=== PATIENT | female | born 1990 | race Caucasian/White ===

== ENCOUNTER → 2016-07-16 | Outpatient (CLI) | payer BC | END | disposition home or self-care (01) | LOC: C.LAB1850 07:01 | PROVIDERS: ATTEND Obstetrics & Gynecology | DX: Z31.41 Encounter for fertility testing (principal) ==

== ENCOUNTER → 2016-08-19 | Outpatient (CLI) | payer BC ==
[2016-08-19 10:15] LABS: CALCULATED INSULIN SENSITIVITY 0.359; GLUCOSE LOG 1.9345; INSULIN FASTING 7.1 mU/L (3-25); INSULIN LOG 0.8513
[2016-08-19 10:17] LABS: PROLACTIN 9.08 ng/mL; THYROID STIMULATING HORMONE 3.19 uIu/ml (0.300-4.500)
== END | disposition home or self-care (01) ==
LOC: C.LAB1850 07:27
PROVIDERS: ATTEND Obstetrics & Gynecology
DX: Z31.41 Encounter for fertility testing (principal)

== ENCOUNTER → 2016-08-27 | Outpatient (CLI) | payer BC ==
--- NOTE | 2016-08-27 10:14 | DIAGNOSTIC IMAGING REPORT ---
HYSTEROSALPINGOGRAM CLINICAL HISTORY: Infertility COMPARISON STUDY: No previous studies for comparison. FINDINGS: 48 seconds of fluoroscopic time was utilized. 5 fluoroscopic spot images were acquired. A hysterosalpingogram was performed by Dr. Mendez. Both fallopian tubes filled a normal fashion. There is free spillage bilaterally. A filling defect within the uterus is felt to represent an air bubble. IMPRESSION: Both fallopian tubes are patent. Electronically signed by: Grey Man M.D. 08/27/2016 10:12 AM Dictated Date/Time: 08/27/2016 10:11 AM
--- NOTE | 2016-08-28 08:34 | OPERATIVE REPORT ---
DATE OF OPERATION: 08/27/2016 DATE OF PROCEDURE: 08/27/2016. PROCEDURE: Hysterosalpingogram. INDICATION: Female infertility. HISTORY OF PRESENT ILLNESS: The patient is a 26-year-old G0, P0 who had presented for infertility workup for hystersalpingogram. This was done using sterile technique and approximately 10 mL of contrast medium. The patient tolerated the procedure well and was stable after it was finished. I attest to the content of the Intraoperative Record and any orders documented therein. Any exceptio ns are noted below.
== END | disposition home or self-care (01) ==
LOC: C.RAD 09:20
PROVIDERS: ATTEND Obstetrics & Gynecology
DX: Z31.41 Encounter for fertility testing (principal)

== ENCOUNTER → 2016-09-06 | Outpatient (CLI) | payer BC | END | disposition home or self-care (01) | LOC: C.LAB1850 06:50 | PROVIDERS: ATTEND Obstetrics & Gynecology | DX: N91.5 Oligomenorrhea, unspecified (principal) ==

== ENCOUNTER → 2016-10-07 | Outpatient (CLI) | payer BC | END | disposition home or self-care (01) | LOC: C.LAB1850 06:53 | PROVIDERS: ATTEND Obstetrics & Gynecology | DX: E03.9 Hypothyroidism, unspecified (principal); N91.5 Oligomenorrhea, unspecified ==

== ENCOUNTER → 2016-11-08 | Outpatient (CLI) | payer BC ==
[2016-11-08 09:50] LABS: ESTIMATED AVERAGE GLUCOSE 94 mg/dl; HA1C FLAG Normal (Normal)
[2016-11-08 10:06] LABS: ALT/SGPT 32 U/L (12-78); AST/SGOT 19 U/L (15-37); BLOOD UREA NITROGEN 8 mg/dl (7-18); CREATININE 0.81 mg/dl (0.60-1.20); GLUCOSE,FASTING 88 mg/dl (70-99)
[2016-11-08 10:07] LABS: ALKALINE PHOSPHATASE 68 U/L (45-117)
== END | disposition home or self-care (01) ==
LOC: C.LAB 09:07
PROVIDERS: ATTEND Specialist
DX: Z31.41 Encounter for fertility testing (principal); E28.2 Polycystic ovarian syndrome

== ENCOUNTER → 2016-12-04 | Outpatient (CLI) | payer BC | END | disposition home or self-care (01) | LOC: C.LAB 08:10 | PROVIDERS: ATTEND Specialist | DX: O09.00 Supervision of pregnancy with history of infertility, unspecified trimester (principal) ==

== ENCOUNTER → 2016-12-20 | Outpatient (CLI) | payer BC | END | disposition home or self-care (01) | LOC: C.PAPS 11:08 | PROVIDERS: ATTEND Obstetrics & Gynecology | DX: Z01.419 Encounter for gynecological examination (general) (routine) without abnormal findings (principal) ==

== ENCOUNTER → 2017-01-14 | Outpatient (CLI) | payer BC | END | disposition home or self-care (01) | LOC: C.LAB1850 06:58 | PROVIDERS: ATTEND Obstetrics & Gynecology Reproductive Endocrinology | DX: Z31.41 Encounter for fertility testing (principal) ==

== ENCOUNTER → 2017-01-16 | Outpatient (CLI) | payer BC ==
--- NOTE | 2017-01-16 16:33 | DIAGNOSTIC IMAGING REPORT ---
EXAMINATION: PELVIC ULTRASOUND (transabdominal and endovaginal scanning) CLINICAL HISTORY: Infertility COMPARISON STUDY: FINDINGS: The uterus measured 4.0 x 6.2 x 3.3 cm. The endometrial stripe measured 5 mm. The right ovary measured 30 x 18 x 15 mm. There are multiple small follicles. The largest measures 7 x 6 x 6 mm. The second largest measures 6 x 5 x 6 mm the third largest measures 5 x 5 x 5 mm.. The left ovary measured 29 x 16 x 17 mm. There are multiple small follicles. The largest measures 6 x 6 x 7 mm. There is also a 6 x 6 x 5 mm follicle is a 7 x 7 x 5 mm follicle.. There is no ultrasonographic evidence of ovarian torsion. It should be noted that ovarian torsion can be present with normal Doppler ultrasonographic findings. There is minimal free fluid present within the cul-de-sac. IMPRESSION: Normal pelvic ultrasound. Multiple bilateral subcentimeter ovarian follicles are visualized. The largest follicle in each ovary measures 7 mm in maximal diameter. Electronically signed by: Grey Man M.D. 01/16/2017 4:32 PM Dictated Date/Time: 01/16/2017 4:29 PM
== END | disposition home or self-care (01) ==
LOC: C.ULTR 14:34
PROVIDERS: ATTEND Specialist
DX: N97.9 Female infertility, unspecified (principal)

== ENCOUNTER → 2017-02-14 | Outpatient (CLI) | payer BC | END | disposition home or self-care (01) | LOC: C.LAB1850 06:54 | PROVIDERS: ATTEND Specialist | DX: O09.00 Supervision of pregnancy with history of infertility, unspecified trimester (principal); Z3A.00 Weeks of gestation of pregnancy not specified ==

== ENCOUNTER → 2017-02-17 | Outpatient (CLI) | payer BC | END | disposition home or self-care (01) | LOC: C.LAB1850 07:30 | PROVIDERS: ATTEND Specialist | DX: Z32.00 Encounter for pregnancy test, result unknown (principal) ==

== ENCOUNTER → 2017-02-19 | Outpatient (CLI) | payer BC | END | disposition home or self-care (01) | LOC: C.LAB1850 07:28 | PROVIDERS: ATTEND Specialist | DX: Z32.00 Encounter for pregnancy test, result unknown (principal) ==

== ENCOUNTER → 2017-03-11 | Outpatient (CLI) | payer BC | END | disposition home or self-care (01) | LOC: C.LAB1850 08:40 | PROVIDERS: ATTEND Specialist | DX: O09.00 Supervision of pregnancy with history of infertility, unspecified trimester (principal); O99.280 Endocrine, nutritional and metabolic diseases complicating pregnancy, unspecified trimester; E03.9 Hypothyroidism, unspecified; E55.9 Vitamin D deficiency, unspecified ==

== ENCOUNTER → 2017-04-25 | Outpatient (CLI) | payer BC | END | disposition home or self-care (01) | LOC: C.LAB1850 07:34 | PROVIDERS: ATTEND Specialist | DX: O09.00 Supervision of pregnancy with history of infertility, unspecified trimester (principal); Z3A.00 Weeks of gestation of pregnancy not specified ==

== ENCOUNTER → 2017-05-23 | Outpatient (CLI) | payer BC | END | disposition home or self-care (01) | LOC: C.LAB1850 07:24 | PROVIDERS: ATTEND Specialist | DX: O09.00 Supervision of pregnancy with history of infertility, unspecified trimester (principal); Z3A.00 Weeks of gestation of pregnancy not specified ==

== ENCOUNTER → 2017-07-21 | Outpatient (CLI) | payer BC | END | disposition home or self-care (01) | LOC: C.LAB1850 07:45 | PROVIDERS: ATTEND Specialist | DX: Z32.00 Encounter for pregnancy test, result unknown (principal) ==

== ENCOUNTER → 2017-07-23 | Outpatient (CLI) | payer BC | END | disposition home or self-care (01) | LOC: C.LAB1850 07:53 | PROVIDERS: ATTEND Specialist | DX: Z32.00 Encounter for pregnancy test, result unknown (principal) ==

== ENCOUNTER → 2017-07-25 | Outpatient (CLI) | payer BC | END | disposition home or self-care (01) | LOC: C.LAB1850 08:08 | PROVIDERS: ATTEND Specialist | DX: Z32.00 Encounter for pregnancy test, result unknown (principal) ==

== ENCOUNTER → 2017-07-28 | Outpatient (CLI) | payer BC | END | disposition home or self-care (01) | LOC: C.LAB1850 09:44 | PROVIDERS: ATTEND Specialist | DX: Z32.00 Encounter for pregnancy test, result unknown (principal) ==

== ENCOUNTER → 2017-08-25 | Outpatient (CLI) | payer BC | END | disposition home or self-care (01) | LOC: C.LABSPEC 15:49 | PROVIDERS: ATTEND Obstetrics & Gynecology | DX: O09.291 Supervision of pregnancy with other poor reproductive or obstetric history, first trimester (principal); Z3A.00 Weeks of gestation of pregnancy not specified ==

== ENCOUNTER → 2017-08-29 | Outpatient (CLI) | payer BC ==
[2017-08-29 15:13] LABS: BASO % 0.5 %; BASO ABS # 0.04 K/uL (0-0.2); EOS % 4.3 %; EOS ABS # 0.35 K/uL (0-0.5); HEMATOCRIT 35.9 % (37-47); HEMOGLOBIN 13.1 g/dL (12.0-16.0); IG# 0.02 K/uL (0.00-0.02); LYMPH % 28.5 %; LYMPH ABS # 2.32 K/uL (1.2-3.4); MEAN CELL VOLUME 83.9 fL (80-100); MEAN CORPUSCULAR HEMOGLOBIN 30.6 pg (25-34); MEAN CORPUSCULAR HGB CONC 36.5 g/dl (32-36); MEAN PLATELET VOLUME 9.4 fL (7.4-10.4); MONO % 6.7 %; MONO ABS # 0.55 K/uL (0.11-0.59); NEUT % 59.8 %; NEUT ABS # 4.87 K/uL (1.4-6.5); PLATELET COUNT 264 K/uL (130-400); RED CELL DISTRIBUTION WIDTH CV 12.7 % (11.5-14.5); RED CELL DISTRIBUTION WIDTH SD 38.5 fL (36.4-46.3); WHITE BLOOD COUNT 8.15 K/uL (4.8-10.8)
== END | disposition home or self-care (01) ==
LOC: C.LAB1850 14:21
PROVIDERS: ATTEND Obstetrics & Gynecology
DX: O09.291 Supervision of pregnancy with other poor reproductive or obstetric history, first trimester (principal); E03.9 Hypothyroidism, unspecified

== ENCOUNTER → 2017-09-18 | Outpatient (CLI) | payer BC | END | disposition home or self-care (01) | LOC: C.LAB1850 11:10 | PROVIDERS: ATTEND Obstetrics & Gynecology | DX: E03.9 Hypothyroidism, unspecified (principal) ==

== ENCOUNTER → 2017-12-08 | Outpatient (CLI) | payer BC | END | disposition home or self-care (01) | LOC: C.LAB1850 09:31 | PROVIDERS: ATTEND Obstetrics & Gynecology | DX: E03.9 Hypothyroidism, unspecified (principal) ==

== ENCOUNTER 2019-08-11 04:41 | Inpatient (IN) ==
[2019-08-11] MEDS ORDERED: OXYTOCIN 30 UNITS/500 ML BAG IV PRN ×2 (04:48→11:17)
[2019-08-11] MEDS: LACTATED RINGER'S 1,000 ML IV PRN ×2 (04:50→08:51)
--- NOTE | 2019-08-11 04:55 | History & Physical Report ---
Date of Service August 11, 2019 Assessment & Plan (1) Normal labor: iup at 39 weeks in active labor requesting epidural analgesia anticipate vaginal delivery History of Present Illness Primary Care Provider: Sandra Merrill DO patient is a 29 yo white female EDC 08/16/19 who presents at 39 weeks with regular contractions since 0300. No SPROM or bloody show. Blood type B negative, GBS negative. Allergies Allergy/AdvReac Type Severity Reaction Status Date / Time cashew nut Allergy Hives Verified 08/05/19 09:44 No Known Drug Allergies Allergy Verified 08/05/19 09:44 pecan nut Allergy Hives Verified 08/05/19 09:44 Home Medications Home Medications Medication Instructions Recorded Confirmed Type vit [id number] See Rx Instructions .ROUTE .COMPLEX 03/30/18 08/05/19 History [ + DHA] sertraline 100 mg PO DAILY 03/30/18 08/05/19 History cholecalciferol (vitamin D3) 25 2,000 units PO .TAKE 2 CAPSULE 12/22/18 08/05/19 History mcg (1,000 unit) capsule Daily cap levothyroxine 50 mcg tablet PO .Take 1 tablet daily #90 tab 12/22/18 08/05/19 History Patient History Medical History Anemia Depression with anxiety Encounter for anatomic survey Encounter for pre-operative examination Hypothyroidism Miscarriage Need for rhogam due to Rh negative mother (normal spontaneous vaginal delivery) Varicella vaccine Surgical History [place] teeth extracted Family History Aunt Endometriosis Thyroid disease Grandfather (Maternal) Lung cancer Mesothelioma Family/Other Thyroid disease Father Dyslipidemia Grandmother (Maternal) Ovarian cancer dx in 80's Mother Raynauds phenomenon Osteoporosis Grandmother (Paternal) Diabetes Family/Other Depression Other Hypertension Denies family history of Prostate cancer Breast cancer Colorectal cancer Social History Preferred Language: Maltese Communication Ability: Effective Data Coordinator Required: No Beliefs That Will Affect Care: None marital status: marital status details: Tai Allen (28) [phone] Current Living Situation: Family Current Living Situation Comment: 2 cats. Pt not changing cat litter. 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 Feels Safe at Home: Yes Smoking Status: Never smoker Second Hand Exposure: No ; Hx Alcohol Use: No Hx Substance Use: No Review of Systems All systems reviewed & are unremarkable except as noted in HPI & below Physical Exam Constitutional: WD/WN, vitals as above Respiratory: normal respiratory effort, lungs clear to auscultation Cardiovascular: RRR, no murmur, no edema Gastrointestinal (Abdomen): normal bowel sounds, soft, nontender, no hepatosplenomegaly Psychiatric: A+Ox3, euthymic affect Genitourinary: OB Exam Abdomen: + vertex and + regular contractions Manual OB Exam: + cervical dilation 6 cm and + cervical effacement 100% OB Exam Monitor Tracing: + external FHT monitor used, + external uterine monitor used, + category I and + normal FHT variability Results & Data Vital Signs (Past 12 Hours) Vital Signs Pulse BP 08/11/19 04:46 94 H 144/82 H Coding Level of Care Code None Diagnoses Normal labor O80; Z37.9
[2019-08-11] MEDS ORDERED: fentaNYL citrate 100 MCG/2 ML VIAL ONE (05:01)
[2019-08-11] MEDS ORDERED: BUPIVACAINE 0.25% 30 ML VIAL ONE (05:01)
[2019-08-11] MEDS ORDERED: ePHEDrine sulfate 50 MG/ML AMP ONE (05:01)
[2019-08-11] MEDS ORDERED: fentaNYL 2MCG/ML ROPIV 1.25MG/ML 100 ML BAG EPI ONE (05:02)
[2019-08-11 05:21] LABS: Hematocrit (blood only) 34.7 % (37-47); Hemoglobin 11.6 g/dL (12.0-16.0); Mean Corpuscular Hemoglobin 27.8 pg (25-34); Mean Corpuscular Hgb Conc 33.4 g/dL (32-36); Mean Platelet Volume 11.7 fL (7.4-10.4); Platelet Count 202 K/uL (130-400); RDW Coefficient of Variation 13.7 % (11.5-14.5); RDW Standard Deviation 41.3 fL (36.4-46.3); Red Blood Count 4.18 M/uL (4.2-5.4); White Blood Count 10.66 K/uL (4.8-10.8)
[2019-08-11] MEDS ORDERED: PROMETHAZINE HCL 6.25 MG in SODIUM CHLORIDE 0.9% 50 ML IV PRN (05:59)
[2019-08-11] MEDS ORDERED: DiphenhydrAMINE HCL 50 MG/ML VIAL IV PRN (05:59)
[2019-08-11] MEDS ORDERED: NALBUPHINE HCL INJ 10 MG/ML AMP IV PRN (05:59)
[2019-08-11] MEDS ORDERED: ePHEDrine sulfate 50 MG/ML AMP IV PRN (05:59)
[2019-08-11] MEDS ORDERED: ONDANSETRON INJ 2 MG/ML 2 ML VIAL IV PRN (05:59)
[2019-08-11] MEDS ORDERED: NALOXONE HCL 0.4 MG/1 ML VIAL/CARP IV PRN (05:59)
[2019-08-11] MEDS ORDERED: NALOXONE HCL 1 MG in SODIUM CHLORIDE 0.9% 1000ML 1,000 ML IV PRN (05:59)
--- NOTE | 2019-08-11 05:59 | Anesthesiology Consultation ---
Date of Service August 11, 2019 Assessment & Plan (1) Encounter for pre-operative examination: Chart Review Chart Review: Patient NOT seen in Pre Admission Testing and Acceptable Risk for Labor Epidural Consults Requested none ASA ASA2 Proposed Anesthesia Anesthesia Type: Labor Epidural and CSE Risk / Benefits Reviewed With: PT / POA / Parent / Guardian, Accepts Plan and Informed Consent Obtained History Height/Weight Height: 5 ft 4 in Weight: 75.296 kg Allergies Allergy/AdvReac Type Severity Reaction Status Date / Time cashew nut Allergy Hives Verified 08/05/19 09:44 No Known Drug Allergies Allergy Verified 08/05/19 09:44 pecan nut Allergy Hives Verified 08/05/19 09:44 Medications Home Medications Medication Instructions Recorded Confirmed Last Taken + DHA See Rx Instructions .ROUTE .COMPLEX 03/30/18 08/11/19 08/10/19 sertraline 100 mg PO DAILY 03/30/18 08/11/19 08/11/19 levothyroxine 50 mcg PO DAILY 08/11/19 08/11/19 08/10/19 Active Medications Generic Name Dose Route Start Last Admin Trade Name Freq PRN Reason Stop Dose Admin Lactated Ringer's 1,000 mls @ 125 mls/hr 08/11/19 04:48 08/11/19 05:40 Lr IV 08/13/19 04:47 125 mls/hr .Q8H PRN Infusion L&D Protocol Protocol NPO Date Last Intake of Fluids: 08/10/19 Time Last Intake of Fluids: 17:00 Date Last Intake of Solids: 08/10/19 Time Last Intake of Solids: 21:00 Past Medical History Medical History Anemia Depression with anxiety Encounter for anatomic survey Encounter for pre-operative examination Hypothyroidism Miscarriage Need for rhogam due to Rh negative mother (normal spontaneous vaginal delivery) Varicella vaccine Exercise / Class Metabolic Activity II 4-5 Yardwork/Stairs/Walk up hill Past Family History Family History Aunt Endometriosis Thyroid disease Grandfather (Maternal) Lung cancer Mesothelioma Family/Other Thyroid disease Father Dyslipidemia Grandmother (Maternal) Ovarian cancer dx in 80's Mother Raynauds phenomenon Osteoporosis Grandmother (Paternal) Diabetes Family/Other Depression Other Hypertension Denies family history of Prostate cancer Breast cancer Colorectal cancer Past Surgical History Surgical History [place] teeth extracted Past Anesthesia History No Hx of Anesthesia Complications and No Family Hx of Anesthesia Complications History of PONV No Hx of PONV and No Hx of Motion Sickness Social History Smoking Status: Never smoker Hx Alcohol Use: No Hx Substance Use: No substance use type: does not use Physical Exam Vital Signs Last Vital Signs Temp 36.4 C L 08/11/19 04:49 Pulse 105 H 08/11/19 05:54 Resp 20 08/11/19 04:49 BP 104/63 08/11/19 05:54 Pulse Ox 100 08/11/19 05:53 ENMT Mouth: no dentition abnormality Thyromental Distance: > or= 3.5 Finger Breadths Mallampati Class: II Neck normal visual inspection Respiratory normal respiratory effort Auscultation: lungs clear to auscultation bilaterally Cardiovascular Rate/Rhythm: regular rate and regular rhythm Psychiatric Orientation: alert Testing Laboratory Results 08/11/19 05:06
--- NOTE | 2019-08-11 10:57 | Delivery Summary ---
Vaginal Delivery Summary Date of Service August 11, 2019 Vaginal Delivery Summary Vaginal Delivery Summary: Pre-delivery diagnoses: 29yo @ 39 06/04, Rh negative, hypothyroidism Post-delivery diagnoses: same Procedure: spontaneous vaginal delivery, repair of 2nd degree perineal laceration Surgeon: Ade Jacobson DO Complications: none Findings: Viable female . Apgars: please see nursery records, nursery has not yet had a chance to calculate these at time of my note. Weight pending, please see nursery records Estimated blood loss: 300ml Description of delivery: The patient progressed to complete with epidural anesthesia. She then began to push. She spontaneously vaginally delivered a viable from the cephalic presentation. The head delivered in ESTUARDO position. No nuchal. The anterior shoulder delivered, followed by the posterior shoulder, followed by the body. The baby was placed on mother's abdomen and the cord was doubly clamped and cut. Baby was immediately handed off to waiting peds team - no spontaneous cry. Cord blood was obtained. The placenta was delivered spontaneously intact with a 3-vessel cord. The uterus and vagina were swept of clots and debris. IV pitocin was given. The uterus became firm. The cervix, vagina, and perineum were inspected and a 2nd degree perineal laceration was noted and repaired in standard fashion with 3-0 vicryl. Excellent hemostasis was observed. The mother and baby are recovering in stable and good condition in the room. Sponge, needle, and instrument counts were correct x 2. Ade Jacobson DO [facility] [place]
[2019-08-11] MEDS ORDERED: HYDROCORTISONE ACETATE 25 MG SUPP PR PRN (11:17)
[2019-08-11] MEDS ORDERED: PRENATAL VIT IRON FOLIC DHA SCH (11:17)
[2019-08-11] MEDS ORDERED: OXYCODONE/ACETAMINOPHEN 5mg/325mg TAB PO PRN (11:17)
[2019-08-11] MEDS ORDERED: bisacodyL 10 MG SUPP PR PRN (11:17)
[2019-08-11] MEDS ORDERED: DIPHTHERIA/TETANUS/PERTUSSIS 0.5 ML SYR/VIAL IM ONE (11:17)
[2019-08-11] MEDS ORDERED: ACETAMINOPHEN 325 MG TAB PO PRN (11:17)
[2019-08-11] MEDS ORDERED: BENZOCAINE 20% AER SPR 82.5 GM CAN EXT PRN (11:17)
[2019-08-11] MEDS ORDERED: SUPERCREAM 0.870% 15 GM JAR EXT PRN (11:17)
--- NOTE | 2019-08-11 13:24 | Anesthesia Procedure Note ---
Date of Service August 11, 2019 Anesthesia Post Epidural Note Vital Signs Vital Signs: Temp Pulse Resp BP Pulse Ox 36.7 C 87 18 114/72 97 08/11/19 11:00 08/11/19 13:12 08/11/19 13:00 08/11/19 13:12 08/11/19 10:38 Notes Mental Status: alert / awake / arousable and participated in evaluation Nausea / Vomiting: adequately controlled Pain: adequately controlled Airway Patency, RR, SpO2: stable & adequate BP & HR: stable & adequate Hydration State: stable & adequate Neuraxial Anesthesia: was administered and sensory block resolved Anesthetic Complications: no major complications apparent and Pt Satisfied with anesthetic care Epidural: Removed without complications and With tip intact
[2019-08-11] MEDS: IBUPROFEN 600 MG TAB PO PRN ×2 (17:10→23:43)
[2019-08-11] MEDS: DOCUSATE SODIUM 100 MG CAP PO SCH (21:30)
[2019-08-12] MEDS: IBUPROFEN 600 MG TAB PO PRN (06:16)
[2019-08-12] MEDS ORDERED: LEVOTHYROXINE SODIUM 50 MCG TABLET PO SCH (06:30)
[2019-08-12 06:39] LABS: Hematocrit (blood only) 29.2 % (37-47); Hemoglobin 9.9 g/dL (12.0-16.0)
[2019-08-12] MEDS: DOCUSATE SODIUM 100 MG CAP PO SCH (07:42)
--- NOTE | 2019-08-12 07:45 | Obstetrical Progress Note ---
Date of Service August 12, 2019 Assessment & Plan (1) Supervision of normal intrauterine in multigravida: PPD#1 doing well. No concerns. Sbe desires discharge home. Reviewed instructions. RTO 6w. Subjective Ambulation: ambulating normally Voiding: no voiding problems Diet Tolerance:: regular diet Lochia:: Moderate Feeding Type:: breast feeding Review of Systems All systems reviewed & are unremarkable except as noted in HPI & below Physical Exam Constitutional WD/WN, vitals as above no acute distress Respiratory normal respiratory effort Cardiovascular Rate/Rhythm: regular rate and regular rhythm Gastrointestinal (Abdomen) Inspection/Auscultation: abdomen normal to inspection; abdomen not distended Percussion/Palpation: abdomen soft Genitourinary OB Exam Abdomen: + fundal height Fundus: + firm; not tender Results & Data Vital Signs (Past 12 Hours) Vital Signs Temp Pulse Resp BP Pulse Ox 08/12/19 04:10 36.5 C 65 15 112/71 97 08/11/19 23:20 36.7 C 77 16 105/67 98 08/11/19 20:00 37.1 C 84 20 107/78
[2019-08-12] MEDS ORDERED: PRENATAL VITAMIN 1 TAB PO SCH (08:00)
[2019-08-12] MEDS ORDERED: SERTRALINE HCL 100 MG TABLET PO SCH (09:00)
[2019-08-12] MEDS ORDERED: bisacodyL 5 MG TABEC PO SCH (20:00)
== END 2019-08-12 12:50 | disposition home or self-care (01) | DRG 807 ==
LOC: OPB 04:41 → 4S1 04:43 → 4S2 15:00

== ENCOUNTER 2022-12-25 12:13 | Inpatient (IN) ==
[2022-12-25] MEDS ORDERED: OXYTOCIN 30 UNITS/500 ML BAG IV PRN ×3 (12:33→17:30)
[2022-12-25] MEDS ORDERED: LIDOCAINE 1% LOCAL 20 ML VIAL INFIL PRN (12:33)
[2022-12-25] MEDS ORDERED: LACTATED RINGER'S 1,000 ML IV PRN (12:33)
--- NOTE | 2022-12-25 12:36 | History & Physical Report ---
Date of Service December 25, 2022 Assessment & Plan (1) : Plan: Patient being induced she had a somewhat unstable lie but is vertex now confirmed by ultrasound 3 cm we will start Pitocin patient will be requesting an epidural and when she has this performed artificial rupture of membranes Admission and Anticipated Discharge Date Admission Date: December 25, 2022 History of Present Illness Primary Care Provider: Sandra Merrill DO and Delivery Plans [facility] PRESENTATION C/S SCHEDULED FOR 12/25/[address] 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 H/o anxiety/depression - Follows with PCP, taking sertraline Hypothyroidism - Q4w TSH S/p flu shot, COVID vaccine + boosters Allergies Allergy/AdvReac Type Severity Reaction Status Date / Time cashew nut Allergy Hives Verified 12/24/22 15:06 No Known Drug Allergies Allergy Verified 12/24/22 15:06 pecan nut Allergy Hives Verified 12/24/22 15:06 Home Medications Medication Instructions Recorded Confirmed Type levothyroxine 50 mcg tablet 50 mcg PO DAILY #90 tabs 01/01/22 12/24/22 Rx sertraline 100 mg tablet 100 mg PO DAILY #90 tabs 01/01/22 12/24/22 Rx prenat.vits,dayanna,[id number] 1 tab PO DAILY 05/24/22 12/24/22 History ferrous sulfate PO 10/23/22 12/24/22 History Patient History Medical History Depression Hypothyroidism Hypothyroidism Intrinsic asthma Miscarriage Need for rhogam due to Rh negative mother Varicella vaccination Vitamin D deficiency Surgical History [place] teeth extracted Family History Aunt Endometriosis Thyroid disease Grandfather (Maternal) Lung cancer Mesothelioma Family/Other Thyroid disease Father Dyslipidemia Trigeminal neuralgia Grandmother (Maternal) Ovarian cancer dx in 80's Mother Raynauds phenomenon Osteoporosis Grandmother (Paternal) Diabetes Family/Other Depression Other Hypertension Denies family history of Prostate cancer Breast cancer Colorectal cancer Social History Smoking Status: Never smoker Second Hand Exposure: No; Do You Dip or Chew Tobacco: No; Hx Alcohol Use: Yes Alcohol Intake Frequency: Monthly or Less Alcohol Intake Frequency Comment: Social Hx Substance Use: No Preferred Language: Arabic Communication Ability: Effective Visual Impairment: No Limitations Hearing Ability: Normal Shrub Grower Required: No Beliefs That Will Affect Care: None marital status: marital status details: Tai Allen (31) [phone] Current Living Situation: Spouse and Family Current Living Situation Comment: lives with spouse, 2 children, cats-spouse changing litter current occupational status: unemployed current occupation: homemaker How many Children do You have: 2 Feels Safe at Home: Yes Childhood Exposure to Second-Hand Smoke: Yes Diet: regular Diet Comment: regular caffeine: Yes (coffee/ tea) during the past year weight has: remained stable Dental Care, Regularly: Yes Physical Activity Frequency: 3-4 Times per Week Seatbelt Use: always Sunscreen Use: Yes Assistive Devices: None Review of Systems as per Subjective / HPI Physical Exam Constitutional: WD/WN, vitals as above well developed and well nourished Respiratory: normal respiratory effort, lungs clear to auscultation normal respiratory effort Cardiovascular: RRR, no murmur, no edema Gastrointestinal (Abdomen): normal bowel sounds, soft, nontender, no hepatosplenomegaly Results & Data Vital Signs (Past 12 Hours) Vital Signs Pulse BP 12/25/22 12:20 86 115/65 Coding Level of Care Code None Diagnoses Z34.90
[2022-12-25 13:08] LABS: Hematocrit (blood only) 30.1 % (37.0-47.0); Hemoglobin 10.2 g/dl (12.0-16.0); Mean Corpuscular Hemoglobin 26.2 pg (25.0-34.0); Mean Corpuscular Hgb Conc 33.9 g/dL (32.0-36.0); Mean Corpuscular Volume 77.4 fL (80.0-100.0); Mean Platelet Volume 10.4 fL (9.4-12.4); Platelet Count 215 K/uL (130-400); RDW Coefficient of Variation 15.3 % (11.5-14.5); RDW Standard Deviation 42.4 fL (36.4-46.3); Red Blood Count 3.89 M/uL (4.20-5.40); White Blood Count 12.24 K/ul (4.8-10.8)
[2022-12-25] MEDS ORDERED: SODIUM CHLORIDE 0.9% PF INJ 10 ML VIAL ONE (14:45)
[2022-12-25] MEDS ORDERED: fentaNYL citrate PF 100 MCG/2 ML VIAL ONE (14:45)
[2022-12-25] MEDS ORDERED: BUPIVACAINE 0.25% PF 30 ML VIAL ONE (14:45)
[2022-12-25] MEDS ORDERED: ePHEDrine sulfate 50 MG/ML AMP ONE (14:45)
[2022-12-25] MEDS ORDERED: fentaNYL 2MCG/ML ROPIVACAINE 1.25MG/ML 100 ML BAG EPI ONE (14:46)
[2022-12-25] MEDS ORDERED: LIDOCAINE 2%/EPINEPHRINE 1:200,000 20 ML PF ONE (14:46)
[2022-12-25] MEDS ORDERED: ePHEDrine sulfate 50 MG/ML AMP IV PRN (14:55)
[2022-12-25] MEDS ORDERED: NALBUPHINE HCL INJ 10 MG/ML AMP IV PRN (14:55)
[2022-12-25] MEDS ORDERED: ONDANSETRON INJ 2 MG/ML 2 ML VIAL IV PRN (14:55)
[2022-12-25] MEDS ORDERED: BUPIVACAINE 0.25% PF 30 ML VIAL EPI STA (14:55)
[2022-12-25] MEDS ORDERED: NALOXONE HCL 1 MG in SODIUM CHLORIDE 0.9% 1000ML 1,000 ML IV PRN (14:55)
[2022-12-25] MEDS ORDERED: fentaNYL 2MCG/ML ROPIVACAINE 1.25MG/ML 100 ML BAG EPI PRN (14:55)
[2022-12-25] MEDS ORDERED: SODIUM CHLORIDE 0.9% PF INJ 10 ML VIAL EPI PRN (14:55)
[2022-12-25] MEDS ORDERED: fentaNYL citrate PF 100 MCG/2 ML VIAL EPI STA (14:55)
[2022-12-25] MEDS ORDERED: NALOXONE HCL 0.4 MG/1 ML VIAL/CARP IV PRN (14:55)
[2022-12-25] MEDS ORDERED: BUPIVACAINE 0.25% PF 30 ML VIAL EPI PRN (14:55)
[2022-12-25] MEDS ORDERED: LIDOCAINE 2% MPF LOCAL 5 ML VIAL EPI PRN (14:55)
[2022-12-25] MEDS ORDERED: ROPIVACAINE 0.5% PF 5 MG/ML 20 ML VIAL EPI PRN (14:55)
[2022-12-25] MEDS ORDERED: fentaNYL citrate PF 100 MCG/2 ML VIAL EPI PRN (14:55)
[2022-12-25] MEDS ORDERED: diphenhydrAMINE 50 MG/ML VIAL IV PRN (14:55)
[2022-12-25] MEDS ORDERED: SODIUM CHLORIDE 0.9% PF INJ 10 ML VIAL EPI STA (14:55)
[2022-12-25] MEDS ORDERED: LIDOCAINE 2%/EPINEPHRINE 1:200,000 20 ML PF EPI STA (14:55)
--- NOTE | 2022-12-25 14:59 | Anesthesiology Consultation ---
Date of Service December 25, 2022 Assessment & Plan Chart Review Chart Review: Acceptable Risk for Labor Epidural Consults Requested none ASA ASA2 Proposed Anesthesia Anesthesia Type: Labor Epidural Risk / Benefits Reviewed With: PT / POA / Parent / Guardian, Accepts Plan and Informed Consent Obtained History Height/Weight Height: 5 ft 4 in Weight: 75.296 kg Allergies Allergy/AdvReac Type Severity Reaction Status Date / Time cashew nut Allergy Hives Verified 12/24/22 15:06 No Known Drug Allergies Allergy Verified 12/24/22 15:06 pecan nut Allergy Hives Verified 12/24/22 15:06 Medications Home Medications Medication Instructions Recorded Confirmed Last Taken levothyroxine 50 mcg tablet 50 mcg PO DAILY #90 tabs 01/01/22 12/25/22 12/25/22 08:00 sertraline 100 mg tablet 100 mg PO DAILY #90 tabs 01/01/22 12/25/22 12/24/22 19:45 prenat.vits,dayanna,[id number] 1 tab PO DAILY 05/24/22 12/25/22 12/24/22 19:45 ferrous sulfate 1 tab PO Q OTHER DAY 10/23/22 12/25/22 12/25/22 08:00 Active Medications Generic Name Dose Route Start Last Admin Trade Name Freq PRN Reason Stop Dose Admin Oxytocin 30 units in 500 mls @ 4 mls/hr 12/25/22 12:33 12/25/22 14:15 Pitocin IV 12/27/22 12:32 0.24 units/hr .Q24H PRN 4 mls/hr Labor Induction/Augmentation Titration Protocol 0.24 UNITS/HR Lactated Ringer's 1,000 mls @ 125 mls/hr 12/25/22 12:33 12/25/22 14:43 Lr IV 12/27/22 12:32 999 mls/hr .Q8H PRN Infusion L&D Protocol Protocol Past Medical History Medical History Depression Hypothyroidism Hypothyroidism Intrinsic asthma Miscarriage Need for rhogam due to Rh negative mother Varicella vaccination Vitamin D deficiency Exercise / Class Metabolic Activity II 4-5 Yardwork/Stairs/Walk up hill Past Family History Family History Aunt Endometriosis Thyroid disease Grandfather (Maternal) Lung cancer Mesothelioma Family/Other Thyroid disease Father Dyslipidemia Trigeminal neuralgia Grandmother (Maternal) Ovarian cancer dx in 80's Mother Raynauds phenomenon Osteoporosis Grandmother (Paternal) Diabetes Family/Other Depression Other Hypertension Denies family history of Prostate cancer Breast cancer Colorectal cancer Past Surgical History Surgical History [place] teeth extracted Past Anesthesia History No Hx of Anesthesia Complications and No Family Hx of Anesthesia Complications History of PONV No Hx of PONV and No Hx of Motion Sickness Social History Smoking Status: Never smoker Do You Dip or Chew Tobacco: No Hx Alcohol Use: No Hx Substance Use: No substance use type: does not use Physical Exam Vital Signs Last Vital Signs Temp 98.6 F 12/25/22 12:23 Pulse 72 12/25/22 14:43 Resp 18 12/25/22 14:16 BP 114/70 12/25/22 14:43 O2 Del Method Room Air 12/25/22 12:23 ENMT Mouth: no dentition abnormality Thyromental Distance: > or= 3.5 Finger Breadths Mallampati Class: II Neck normal visual inspection Respiratory normal respiratory effort Auscultation: lungs clear to auscultation bilaterally Cardiovascular Rate/Rhythm: regular rate and regular rhythm Testing Laboratory Results 12/25/22 12:43
--- NOTE | 2022-12-25 16:03 | Delivery Summary ---
Vaginal Delivery Summary Date of Service December 25, 2022 Vaginal Delivery Summary Spontaneous vaginal delivery the patient was induced after 39 weeks she had been breech but then reverted to vertex induction was begun at 3 cm she was group B strep negative Pitocin was started she eventually requested epidural and artificial rupture of membranes for clear fluid shortly thereafter she was fully dilated delivered a baby over a short amount of pushing occiput anterior clear fluid mouth and nares suctioned and there is no nuchal cord gentle traction the baby no excessive force Vigorous female infant Cord clamped and cut cord blood obtained placenta removed with gentle traction IV Pitocin started second-degree tear repaired with 3-0 Vicryl sponge instrument counts correct estimated blood loss 150 mL
--- NOTE | 2022-12-25 17:25 | Anesthesia Procedure Note ---
Date of Service December 25, 2022 Anesthesia Post Epidural Note Vital Signs Vital Signs: Temp Pulse Resp BP Pulse Ox O2 Del Method 98.6 F 71 16 105/55 L 98 Room Air 12/25/22 17:00 12/25/22 17:22 12/25/22 17:00 12/25/22 17:15 12/25/22 17:22 12/25/22 12:23 Pain Intensity Abdomen: Pain Intensity: 0 Notes Mental Status: alert / awake / arousable and participated in evaluation Nausea / Vomiting: adequately controlled Pain: adequately controlled Airway Patency, RR, SpO2: stable & adequate BP & HR: stable & adequate Hydration State: stable & adequate Neuraxial Anesthesia: was administered and sensory block is resolving Anesthetic Complications: no major complications apparent and Pt Satisfied with anesthetic care Epidural: Removed without complications and With tip intact
[2022-12-25] MEDS ORDERED: BENZOCAINE 20% SPRY 85 APPLN/85 GM CAN EXT PRN (17:30)
[2022-12-25] MEDS ORDERED: HYDROCORTISONE ACETATE 25 MG SUPP PR PRN (17:30)
[2022-12-25] MEDS ORDERED: ACETAMINOPHEN 325 MG TAB PO PRN (17:30)
[2022-12-25] MEDS ORDERED: bisacodyL 10 MG SUPP PR PRN (17:30)
[2022-12-25] MEDS ORDERED: IBUPROFEN 600 MG TAB PO PRN (17:30)
[2022-12-25] MEDS ORDERED: DIPHTHERIA/TETANUS/PERTUSSIS Vaccine (Tdap, Age 7+yrs) 0.5mL SYR/VL IM ONE (17:30)
[2022-12-25] MEDS ORDERED: oxyCODONE/ACETAMINOPHEN 5mg/325mg TAB PO PRN (17:30)
[2022-12-25] MEDS: DOCUSATE SODIUM 100 MG CAP PO SCH (21:31)
[2022-12-26] MEDS ORDERED: LEVOTHYROXINE SODIUM 50 MCG TABLET PO SCH (06:30)
--- NOTE | 2022-12-26 06:35 | Obstetrical Progress Note ---
Date of Service December 26, 2022 Assessment & Plan (1) (normal spontaneous vaginal delivery): Plan: post day one encourage ambulation plan for DC today Admission and Anticipated Discharge Date Admission Date: December 25, 2022 Supervising Physician Co-Signing Physician Notes Resident Physician Supervision Note: I was present with Dr. Gordon during the history and exam. I discussed the case with the resident and agree with the findings and plan as documented in the note. Any exceptions or clarifications are listed here: [None] Documented By: Anastasia Bustillos MD, FACOG Subjective 32 yo post day 1 s/p Ambulation: ambulating normally Voiding: no voiding problems Passing Gas:: Yes Diet Tolerance:: regular diet Lochia:: Small Feeding Type:: bottle feeding Current Pain Level: minimal Resting comfortably this AM in NAD Denies HUTCHINS, CP, SOB, N/V/D, LE swelling Review of Systems Review of Systems: reviewed, per hpi Physical Exam Physical Exam: General: patient resting comfortably, NAD, non-toxic in appearance, AA&O x 4, answers questions appropriately. Skin: warm, dry, intact HEENT: NC/AT, anicteric sclera, conjunctiva without injection, moist mucus membranes. Heart: +S1/S2, regular, no m/r/g Lungs: equal air entry bilaterally, no rales/rhonchi/wheezes Abd: +BS, soft, NT/ND, uterine fundus firm at umbilicus Ext: warm, no clubbing/cyanosis or edema, Garrett's neg Neuro: nonfocal, patient AA&O x 4, speech intact, no facial droop, moving all extremities on command. Results & Data Vital Signs (Past 12 Hours) Vital Signs Temp Pulse Resp BP Pulse Ox O2 Del Method 12/26/22 03:15 37.3 C 68 18 105/67 98 Room Air 12/25/22 23:20 37.3 C 70 16 107/69 98 Room Air 12/25/22 19:45 36.8 C 71 16 101/64 98 Room Air Laboratory Results 12/26/22 12/25/22 Range/Units 06:05 12:43 WBC Pending 12.24 H (4.8-10.8) K/ul RBC Pending 3.89 L (4.20-5.40) M/uL Hgb Pending 10.2 L (12.0-16.0) g/dl Hct Pending 30.1 L (37.0-47.0) % MCV Pending 77.4 L (80.0-100.0) fL MCH Pending 26.2 (25.0-34.0) pg MCHC Pending 33.9 (32.0-36.0) g/dL RDW Std Deviation 42.4 (36.4-46.3) fL RDW Coeff of Michelle 15.3 H (11.5-14.5) % Plt Count Pending 215 (130-400) K/uL MPV 10.4 (9.4-12.4) fL Resident Activity Tracking Resident Involvement: Resident Care Provided Care Provided: Adult [facility]
[2022-12-26 06:53] LABS: Hematocrit (blood only) 31.1 % (37.0-47.0); Mean Corpuscular Hemoglobin 25.4 pg (25.0-34.0); Mean Corpuscular Hgb Conc 32.2 g/dL (32.0-36.0); Mean Corpuscular Volume 79.1 fL (80.0-100.0); Mean Platelet Volume 10.5 fL (9.4-12.4); Platelet Count 190 K/uL (130-400); RDW Coefficient of Variation 14.8 % (11.5-14.5); RDW Standard Deviation 43.1 fL (36.4-46.3); Red Blood Count 3.93 M/uL (4.20-5.40)
[2022-12-26] MEDS ORDERED: PRENATAL VITAMIN 1 TAB PO SCH (08:00)
[2022-12-26] MEDS: DOCUSATE SODIUM 100 MG CAP PO SCH (08:29)
[2022-12-26] MEDS ORDERED: SERTRALINE HCL 100 MG TABLET PO SCH (09:00)
[2022-12-26] MEDS ORDERED: bisacodyL 5 MG TABEC PO SCH (20:00)
== END 2022-12-26 17:18 | disposition home or self-care (01) | DRG 807 ==
LOC: 4S1 12:13 → 4E2 18:29